=== PATIENT | male | born 1960 | race Caucasian/White ===

== ENCOUNTER 2017-08-24 01:15 | Emergency (ER) | payer SELFPAY ==
[2017-08-24] VITALS (7 sets, daily range): BP systolic 118–198; BP diastolic 81–109; PULSE 76–81; RESP 18–24; TEMP 97.8; O2SAT 96–100
[~2017-08-24] VITALS: Ht 180.3 cm; Wt 81.8 kg
[~2017-08-24 01:15] MED LIST: ALBU6.7H INH; ASPI81 PO; GUAI100S6 PO; LISI-363 PO; METO25 PO; PRED20 PO; ZITH250T PO
[2017-08-24] MEDS ORDERED: ASPI1TAB57 PO (01:38)
--- NOTE | 2017-08-24 01:55 | PD ---
HPI Chief Complaint: Respiratory Symptoms Time Seen by Provider: 01:51 Travel History International Travel<30 days: No Contact w/Intl Traveler<30days: No Traveled to known affect area: No History of Present Illness HPI 57-year-old male presents to the emergency department for complaint of shortness of breath and wheezing. Patient states she has had wheezing intermittently for a while but specifically worsened since 10 PM this evening. No chest pain. Patient denies productive cough. No hemoptysis. No abdominal pain. Patient does smoke marijuana but denies tobacco use. Patient is been treated in the past for bronchitis. Patient concerned about exposure to mold in his home. Patient states he feels improved just since he left his house and arrived here. No fever no chills no sore throat no earache no abdominal pain. No nausea no vomiting no sweats. No lower extremity pain or swelling. No orthopnea or PND. PFSH Past Medical History Narrative Medical Hypertension possible irregular heartbeat marijuana use nursing notes reviewed Atrial Fibrillation: Yes (thinks maybe afib) Cardiovascular Problems: Yes (unsure; some type of misc heart prob ) Hypertension: Yes Tetanus Vaccination: > 5 Years Influenza Vaccination: No Past Surgical History Abdominal Surgery: Yes (HERNIA) Social History Alcohol Use: No Tobacco Use: No Substance Use: Yes (marijuana) Allergies-Medications (Allergen,Severity, Reaction): Coded Allergies: No Known Allergies (Verified , 07/19/12) Reported Meds & Prescriptions Reported Meds & Active Scripts Active Reported Aspirin 81 (Aspirin) 81 Mg Tabdr 81 Mg PO DAILY Review of Systems Except as stated in HPI: all other systems reviewed are Neg General / Constitutional: No: Fever HENT: Positive: Congestion, No: Sore Throat Cardiovascular: No: Chest Pain or Discomfort Respiratory: Positive: Cough, Shortness of Breath, Wheezing Gastrointestinal: No: Vomiting, Abdominal Pain Genitourinary: No: Flank Pain Musculoskeletal: No: Myalgias, Arthralgias Skin: No Rash Neurologic: No: Weakness Psychiatric: No: Anxiety Hematologic/Lymphatic: No: Lymph Node Enlargement Physical Exam Narrative GENERAL: Well-developed well-nourished male in no acute distress no respiratory distress SKIN: Warm and dry. HEAD: Normocephalic. EYES: No scleral icterus. No injection or drainage. NECK: Supple, trachea midline. No JVD or lymphadenopathy. CARDIOVASCULAR: Regular rate and rhythm without murmurs, gallops, or rubs. RESPIRATORY: Breath sounds equal with wheezing bilaterally. No accessory muscle use. GASTROINTESTINAL: Abdomen soft, non-tender, nondistended. MUSCULOSKELETAL: No cyanosis, or edema. BACK: Nontender without obvious deformity. No CVA tenderness. Data Data Last Documented VS Vital Signs Date Time Temp Pulse Resp B/P (MAP) Pulse Ox O2 Delivery O2 Flow Rate FiO2 08/24/17 02:28 79 20 198/84 (122) 100 Room Air 08/24/17 02:27 2.00 08/24/17 02:05 21 08/24/17 01:17 97.8 Orders Orders Complete Blood Count With Diff (08/24/17 01:51) Basic Metabolic Panel (Bmp) (08/24/17 01:51) B-Type Natriuretic Peptide (08/24/17 01:51) Magnesium (Mg) (08/24/17 01:51) Ckmb (Isoenzyme) Profile (08/24/17 01:51) Troponin I (08/24/17 01:51) Influenzae A/B Antigen (08/24/17 01:51) Iv Access Insert/Monitor (08/24/17 01:51) Electrocardiogram (08/24/17 01:51) Ecg Monitoring (08/24/17 01:51) Oximetry (08/24/17 01:51) Oxygen Administration (08/24/17 01:51) Chest, Single Ap (08/24/17 01:51) Sodium Chloride 0.9% Flush (Ns Flush) (08/24/17 02:00) Methylprednisolone So Succ Inj (Solumedr (08/24/17 02:00) Albuterol-Ipratropium Neb (Duoneb Neb) (08/24/17 02:00) Clonidine (Catapres) (08/24/17 03:15) Labs Laboratory Tests Test 08/24/17 01:50 White Blood Count 7.0 TH/MM3 Red Blood Count 5.02 MIL/MM3 Hemoglobin 16.0 GM/DL Hematocrit 45.8 % Mean Corpuscular Volume 91.2 FL Mean Corpuscular Hemoglobin 31.9 PG Mean Corpuscular Hemoglobin Concent 35.0 % Red Cell Distribution Width 13.1 % Platelet Count 239 TH/MM3 Mean Platelet Volume 8.4 FL Neutrophils (%) (Auto) 57.1 % Lymphocytes (%) (Auto) 19.8 % Monocytes (%) (Auto) 15.6 % Eosinophils (%) (Auto) 6.4 % Basophils (%) (Auto) 1.1 % Neutrophils # (Auto) 4.0 TH/MM3 Lymphocytes # (Auto) 1.4 TH/MM3 Monocytes # (Auto) 1.1 TH/MM3 Eosinophils # (Auto) 0.4 TH/MM3 Basophils # (Auto) 0.1 TH/MM3 CBC Comment DIFF FINAL Differential Comment Blood Urea Nitrogen 20 MG/DL Creatinine 1.04 MG/DL Random Glucose 100 MG/DL Calcium Level 8.9 MG/DL Magnesium Level 2.4 MG/DL Sodium Level 142 MEQ/L Potassium Level 3.4 MEQ/L Chloride Level 109 MEQ/L Carbon Dioxide Level 25.7 MEQ/L Anion Gap 7 MEQ/L Estimat Glomerular Filtration Rate 73 ML/MIN Total Creatine Kinase 94 U/L Troponin I LESS THAN 0.02 NG/ML B-Type Natriuretic Peptide 54 PG/ML MDM Medical Decision Making Medical Screen Exam Complete: Yes Emergency Medical Condition: Yes Medical Record Reviewed: Yes Interpretation(s) EKG normal sinus rhythm rate [address] elevation injury pattern or ectopy noted Influenza antigen: Negative Last Impressions Chest X-Ray 08/24/17 0151 Signed Impressions: Service Date/Time: Thursday, August 24, 2017 02:03 - CONCLUSION: No acute disease. Julio Montoya MD CBC & BMP Diagram 08/24/17 01:50 Vital Signs Date Time Temp Pulse Resp B/P (MAP) Pulse Ox O2 Delivery O2 Flow Rate FiO2 08/24/17 02:28 79 20 198/84 (122) 100 Room Air 08/24/17 02:27 98 Nasal Cannula 2.00 08/24/17 01:48 76 24 98 Room Air 08/24/17 01:17 97.8 81 18 118/81 (93) 96 Room Air CK 94, not elevated troponin I less than 0.02, not elevated BNP not elevated Differential Diagnosis Bronchitis COPD pneumonia CHF ACS viral syndrome influenza Narrative Course Patient was on potline monitor IV access obtained specimens collected and sent for resulting imaging study and EKG ordered patient given Solu-Medrol and DuoNeb [facility] Diagnosis Primary Impression: Bronchitis Additional Impression: HTN (hypertension) Referrals: Primary Care Physician call for appointment Patient Instructions: General Instructions Additional Instructions: Increase fluid hydration Take medications as prescribed Follow-up with primary care provider Return to the emergency department for a concerns or change in condition Monitor temperature every 4 hours with thermometer take as needed acetaminophen/ Tylenol every 4 hours for fever 100.4F or greater Med/Other Pt SpecificInfo: Prescription(s) given Scripts Albuterol 18 GM Inh (Ventolin Hfa 18 GM Inh) 90 Mcg/Act Aer 2 PUFF INH Q4-6H Y for SHORTNESS OF BREATH, #1 INHALER 1 Refill Prov: Carol Langtson MD 08/24/17 Methylprednisolone Dosepak (Medrol Dosepak) 4 Mg Dspk 4 MG PO DIRECTED, #1 DSPK 0 Refills Per Pharmacist direction Prov: Carol Langston MD 08/24/17 Enalapril (Enalapril) 5 Mg Tab 5 MG PO DAILY, #30 TAB 0 Refills Prov: Carol Langston MD 08/24/17 Clonidine (Clonidine) 0.1 Mg Tab 0.1 MG PO Q12HR Y for SBP>180, DBP>95, #6 TAB 0 Refills Prov: Carol Langston MD 08/24/17 Disposition: 01 DISCHARGE HOME Condition: Stable Carol Langston MD Aug 24, 2017 01:55
[2017-08-24] MEDS: RESP: ALBUTEROL 2.5 MG/IPRATROPIUM 0.5 MG NEB (SCH) INH ×2 (01:58→01:59)
[2017-08-24] MEDS ORDERED: methylPREDNISolone SOD SUCC 125 MG/2 ML VIAL IV PUSH ONE (02:00)
[2017-08-24] MEDS ORDERED: SODIUM CHLORIDE 0.9% FLUSH 10 ML FLUSH IVF PRN (02:00)
--- NOTE | 2017-08-24 02:11 | RADRPT ---
EXAM DATE/TIME: 08/24/2017 02:03 [facility] COMPARISON: No previous studies available for comparison. INDICATIONS : Patient complains of cough and shortness of breath. MEDICAL HISTORY : None. SURGICAL HISTORY : None. ENCOUNTER: Initial ACUITY: 2 days PAIN SCORE: 0/10 LOCATION: chest FINDINGS: A single view of the chest demonstrates the lungs to be symmetrically aerated without evidence of mas s, infiltrate or effusion. The cardiomediastinal contours are unremarkable. Osseous structures are intact. CONCLUSION: No acute disease. Julio Montoya MD on August 24, 2017 at 2:08 Board Certified Radiologist. This report was verified electronically.
[2017-08-24 02:15] LABS: BASOPHIL # 0.1 TH/MM3 (0-0.2); BASOPHIL % 1.1 % (0.0-2.0); EOSINOPHIL # 0.4 TH/MM3 (0-0.4); EOSINOPHIL % 6.4 % (0.0-4.0); HEMATOCRIT 45.8 % (39.0-51.0); LYMPH % 19.8 % (9.0-44.0); LYMPHOCYTE # 1.4 TH/MM3 (1.0-4.8); MEAN CELL VOLUME 91.2 FL (80.0-100.0); MEAN CORPUSCULAR HEMOGLOBIN 31.9 PG (27.0-34.0); MEAN PLATELET VOLUME 8.4 FL (7.0-11.0); MONO % 15.6 % (0.0-8.0); MONOCYTE # 1.1 TH/MM3 (0-0.9); NEUT % 57.1 % (16.0-70.0); PLATELET COUNT 239 TH/MM3 (150-450); RED BLOOD COUNT 5.02 MIL/MM3 (4.50-5.90); RED CELL DISTRIBUTION WIDTH 13.1 % (11.6-17.2)
[2017-08-24 02:40] LABS: BICARBONATE 25.7 MEQ/L (21.0-32.0); BLOOD UREA NITROGEN 20 MG/DL (7-18); CALCIUM 8.9 MG/DL (8.5-10.1); CHLORIDE 109 MEQ/L (98-107); CREATININE 1.04 MG/DL (0.60-1.30); GLOMERULAR FILTRATION RATE 73 ML/MIN (>89); GLUCOSE,RANDOM 100 MG/DL (74-106); MAGNESIUM 2.4 MG/DL (1.5-2.5); SODIUM (NA) 142 MEQ/L (136-145)
[2017-08-24 02:44] LABS: TROPONIN I LESS THAN 0.02 NG/ML (0.02-0.05)
[2017-08-24] MEDS ORDERED: ENAL5TAB PO (03:11)
[2017-08-24] MEDS ORDERED: MEDR4PAK PO (03:11)
[2017-08-24] MEDS ORDERED: VENTAER INH (03:11)
[2017-08-24] MEDS ORDERED: CLON0.1T PO (03:11)
[2017-08-24] MEDS ORDERED: cloNIDine HCL 0.1 MG TAB PO ONE (03:15)
--- NOTE | 2017-08-24 22:42 | EKG ---
Date Performed: 08/24/2017 Time Performed: 02:34:21 PTAGE: 57 years EKG: Sinus rhythm BORDERLINE LEFT AXIS DEVIATION BORDERLINE ECG PREVIOUS TRACING : 07/19/2012 08.56 Compared to the previous tracing, rate has decreased DOCTOR: Varghese Rosales Interpretating Date/Time 08/24/2017 22:42:20
== END 2017-08-24 04:12 | disposition home or self-care (01) ==
LOC: NEPC 01:15
DX: J40 Bronchitis, not specified as acute or chronic (principal); I10 Essential (primary) hypertension; F12.90 Cannabis use, unspecified, uncomplicated; Z79.82 Long term (current) use of aspirin
CPT/HCPCS: 71010; 80048; 82550; 83735; 83880; 84484; 85025; 87804; 93005; 94640; 94664; 96361; 96374; 99285; J2930

== ENCOUNTER 2017-09-02 00:26 | Emergency (ER) | payer SELFPAY ==
[~2017-09-02] VITALS: Ht 180.3 cm; Wt 81.8 kg
[~2017-09-02 00:26] MED LIST changes: -ALBU6.7H INH; +ASPI1TAB57 PO; -ASPI81 PO; +CLON0.1T PO; +ENAL5TAB PO; -GUAI100S6 PO; -LISI-363 PO; +MEDR4PAK PO; -METO25 PO; -PRED20 PO; +VENTAER INH; -ZITH250T PO
[2017-09-02 00:27] VITALS: BP 210/117; PULSE 89; RESP 20; TEMP 98; O2SAT 97
[2017-09-02 00:42] VITALS: BP 174/88; PULSE 74; RESP 17; O2SAT 95
[2017-09-02 00:45] VITALS: PULSE 88; RESP 16; O2SAT 97
--- NOTE | 2017-09-02 00:51 | PD ---
HPI Chief Complaint: Respiratory Distress Time Seen by Provider: 00:45 Travel History International Travel<30 days: No Contact w/Intl Traveler<30days: No Traveled to known affect area: No History of Present Illness HPI The patient is 57 year old male who presents to the [facility] emergency department with a history of shortness of breath that recurred prior to arrival. The patient reports that he was seen in the emergency department on August 24 related to shortness of breath and wheezing. The patient was discharged home with a prescription for a rescue inhaler and a Medrol Dosepak, however the patient reports that he did not get the medications filled as he was not able to afford it. The patient has [facility] insurance. He is unsure who his assigned primary care physician is. He has not been to see a primary care physician in an extended period of time. He reports that 5 years ago he was on medication for high blood pressure, however he has not been on any since then. The patient was hypertensive when he arrived in the emergency department during his last evaluation and was given a prescription for clonidine and enalapril. The patient reports that he does not like the way the medication makes him feel. He reports that he believes his blood pressure continues to be elevated in spite of taking the medicine. The patient denies having a productive cough. He reports that he has postnasal drip that is chronic related to chronic sinus issues. The patient denies having any known recent fevers, neck pain, chest pain,abdominal pain, vomiting, diarrhea, urinary symptoms, or neurologic symptoms. PFSH Past Medical History Narrative Medical The patient's past medical history is significant for hypertension- cannot of blood pressure medication , marijuana use daily, irregular heart beat possibly atrial fibrillation, he is unsure of the name of the irregular rhythm. Atrial Fibrillation: Yes (thinks maybe afib) Cardiovascular Problems: Yes (unsure; some type of misc heart prob ) Hypertension: Yes Tetanus Vaccination: Never Vaccinated Influenza Vaccination: No Past Surgical History Narrative Surgical The patient's past surgical history is significant for hernia repair bilateral. Abdominal Surgery: Yes (HERNIA) Social History Alcohol Use: No Tobacco Use: No Substance Use: Yes (daily marijuana use) Allergies-Medications (Allergen,Severity, Reaction): Coded Allergies: No Known Allergies (Verified Adverse Reaction, Unknown, 09/02/17) Reported Meds & Prescriptions Reported Meds & Active Scripts Active Ventolin Hfa 18 GM Inh (Albuterol Sulfate) 90 Mcg/Act Aer 2 Puff INH Q4-6H PRN Medrol Dosepak (Methylprednisolone) 4 Mg Dspk 4 Mg PO DIRECTED Per Pharmacist direction Enalapril (Enalapril Maleate) 5 Mg Tab 5 Mg PO DAILY Clonidine (Clonidine HCl) 0.1 Mg Tab 0.1 Mg PO Q12HR PRN Reported Aspirin 81 (Aspirin) 81 Mg Tabdr 81 Mg PO DAILY Review of Systems Except as stated in HPI: all other systems reviewed are Neg General / Constitutional: No: Fever Eyes: No: Visual changes HENT: Positive: Congestion, No: Headaches Cardiovascular: Positive: Dyspnea on exertion, No: Chest Pain or Discomfort Respiratory: Positive: Cough, Shortness of Breath Gastrointestinal: No: Abdominal Pain Genitourinary: No: Dysuria Musculoskeletal: No: Pain Skin: No Rash Neurologic: No: Weakness Psychiatric: No: Depression Endocrine: No: Polydipsia Hematologic/Lymphatic: No: Easy Bruising Physical Exam Narrative General: The patient is a well-developed well-nourished male in no acute distress. Head and Neck exam: Head is normocephalic atraumatic. Eyes: EOMI, pupils are equal round and reactive to light. Nose: Midline septum with pink mucous membranes Mouth: Dentition unremarkable. Moist mucus membranes. Posterior oropharynx is not erythematous. No tonsillar hypertrophy. Uvula midline. Airway patent. Neck: No palpable lymphadenopathy. No nuchal rigidity. No thyromegaly. Cardiovascular: Regular rate and rhythm without murmurs, gallops, or rubs. Lungs: Soft expiratory wheezes audible throughout bilateral lung salazar. No rhonchi, no crackles. Abdomen: Soft, without tenderness to palpation in all 4 quadrants of the abdomen. No guarding, rebound, or rigidity. Normal bowel sounds are audible. No tenderness on palpation of McBurney's point. Extremities: No clubbing, cyanosis, or edema. 2+ pulses in all 4 extremities. No calf tenderness on palpation. Negative Homans sign. No palpable cords. Back: No spinous process tenderness to palpation. No costovertebral angle tenderness to palpation. Neurologic Exam: Grossly nonfocal. Skin Exam: No rash noted. Intact skin that is warm and dry. Data Data Last Documented VS Vital Signs Date Time Temp Pulse Resp B/P (MAP) Pulse Ox O2 Delivery O2 Flow Rate FiO2 09/02/17 00:45 88 16 97 Nasal Cannula 2.00 09/02/17 00:27 98.0 Orders Orders Complete Blood Count With Diff (09/02/17 01:09) Basic Metabolic Panel (Bmp) (09/02/17 01:09) Iv Access Insert/Monitor (09/02/17 01:09) Ecg Monitoring (09/02/17 01:09) Oximetry (09/02/17 01:09) Oxygen Administration (09/02/17 01:09) Sodium Chloride 0.9% Flush (Ns Flush) (09/02/17 01:15) Methylprednisolone So Succ Inj (Solumedr (09/02/17 01:15) Albuterol-Ipratropium Neb (Duoneb Neb) (09/02/17 01:15) Albuterol Hfa Inh (Proair Hfa Inh) (09/02/17 01:30) Resp Request For Service (09/02/17 ) Chest, Single Ap (09/02/17 02:04) Clonidine (Catapres) (09/02/17 02:30) Labs Laboratory Tests Test 09/02/17 01:20 White Blood Count 9.2 TH/MM3 Red Blood Count 5.04 MIL/MM3 Hemoglobin 16.3 GM/DL Hematocrit 46.0 % Mean Corpuscular Volume 91.3 FL Mean Corpuscular Hemoglobin 32.2 PG Mean Corpuscular Hemoglobin Concent 35.3 % Red Cell Distribution Width 12.8 % Platelet Count 286 TH/MM3 Mean Platelet Volume 8.7 FL Neutrophils (%) (Auto) 63.5 % Lymphocytes (%) (Auto) 19.4 % Monocytes (%) (Auto) 11.2 % Eosinophils (%) (Auto) 4.9 % Basophils (%) (Auto) 1.0 % Neutrophils # (Auto) 5.9 TH/MM3 Lymphocytes # (Auto) 1.8 TH/MM3 Monocytes # (Auto) 1.0 TH/MM3 Eosinophils # (Auto) 0.5 TH/MM3 Basophils # (Auto) 0.1 TH/MM3 CBC Comment DIFF FINAL Differential Comment Blood Urea Nitrogen 18 MG/DL Creatinine 1.23 MG/DL Random Glucose 122 MG/DL Calcium Level 9.0 MG/DL Sodium Level 141 MEQ/L Potassium Level 3.5 MEQ/L Chloride Level 107 MEQ/L Carbon Dioxide Level 27.5 MEQ/L Anion Gap 7 MEQ/L Estimat Glomerular Filtration Rate 60 ML/MIN MDM Medical Decision Making Medical Screen Exam Complete: Yes Emergency Medical Condition: Yes Medical Record Reviewed: Yes Differential Diagnosis COPD exacerbation, versus reactive airway related to allergy exacerbation, versus congestive heart failure Narrative Course During the course of the patients emergency department visit, the patients history, examination, and differential diagnosis were reviewed with the patient. The patient was placed on a groundwater monitoring technician with oximetry and frequent blood pressure monitoring. The patient had IV access obtained and blood work sent for analysis. The patient's electronic medical record was reviewed. The patient was seen on August 24 regarding similar symptoms and had a full workup including cardiac enzymes, ECG, BNP that were all within normal limits. A chest x-ray at that time showed no acute abnormality. The patient was initially provided Solu-Medrol 125 mg IV, DuoNeb 2. The patient was given clonidine 0.1 by mouth 1. The patients laboratory studies were reviewed and remarkable for white count of 9.2, hemoglobin 16.3, platelets 286 with 11.2 monocytes. Basic metabolic profile is remarkable for a GFR of 60, glucose 122 Radiology studies were reviewed and remarkable for a chest x-ray that shows no evidence of congestive heart failure, no acute cardiopulmonary disease. The patient was given instruction from respiratory therapy regarding use of an inhaler. He inhaler was administered to him. The patient was instructed that the Medrol Dosepak taper that he was previously prescribed is on the $4 list at [facility]. He will follow up to obtain this prescription as well as follow-up with a primary care physician as soon as possible. He was instructed regarding the importance of continuing on his new blood pressure medication. The patient is resting comfortably and feels better, is alert and in no distress. The patients results and examination findings were discussed with the patient. The repeat examination is unremarkable and benign. The history, exam, diagnostic testing, and current condition do not suggest any significant pathology to warrant further testing, continued ED treatment, admission, or surgical evaluation at this point. The vital signs have been stable. The patient does not have uncontrollable pain, intractable vomiting, or other significant symptoms. The patient's condition is stable and appropriate for discharge. The patient will pursue further outpatient evaluation with a primary care physician or other designated or consulting physician as indicated in the discharge instructions. The patient expressed understanding and was agreeable with this plan. Diagnosis Primary Impression: Wheezing Additional Impressions: Marijuana use Uncontrolled hypertension Referrals: Primary Care Physician 2 days Patient Instructions: Cannabis Abuse (ED), General Instructions, Hypertension ( ED), Wheezing (ED) Med/Other Pt SpecificInfo: No Change to Meds Disposition: 01 DISCHARGE HOME Condition: Stable Genna Sylvester MD Sep 02, 2017 00:51
[2017-09-02] MEDS ORDERED: SODIUM CHLORIDE 0.9% FLUSH 10 ML FLUSH IVF PRN (01:15)
[2017-09-02] MEDS ORDERED: methylPREDNISolone SOD SUCC 125 MG/2 ML VIAL IV PUSH ONE (01:15)
[2017-09-02] MEDS: RESP: ALBUTEROL 2.5 MG/IPRATROPIUM 0.5 MG NEB (SCH) INH (01:20)
[2017-09-02] MEDS ORDERED: ALBUTEROL SULFATE 90 MCG/ACT HFA 8 GM INHALER INH ONE (01:30)
[2017-09-02 01:40] LABS: AUTOMATED NEUTROPHIL # 5.9 TH/MM3 (1.8-7.7); BASOPHIL # 0.1 TH/MM3 (0-0.2); EOSINOPHIL # 0.5 TH/MM3 (0-0.4); EOSINOPHIL % 4.9 % (0.0-4.0); HEMOGLOBIN 16.3 GM/DL (13.0-17.0); LYMPH % 19.4 % (9.0-44.0); LYMPHOCYTE # 1.8 TH/MM3 (1.0-4.8); MEAN CELL VOLUME 91.3 FL (80.0-100.0); MEAN CORPUSCULAR HEMOGLOBIN 32.2 PG (27.0-34.0); MEAN CORPUSCULAR HGB CONC 35.3 % (32.0-36.0); MEAN PLATELET VOLUME 8.7 FL (7.0-11.0); MONO % 11.2 % (0.0-8.0); NEUT % 63.5 % (16.0-70.0); PLATELET COUNT 286 TH/MM3 (150-450); RED BLOOD COUNT 5.04 MIL/MM3 (4.50-5.90); RED CELL DISTRIBUTION WIDTH 12.8 % (11.6-17.2); WHITE BLOOD COUNT 9.2 TH/MM3 (4.0-11.0)
[2017-09-02 01:56] LABS: BICARBONATE 27.5 MEQ/L (21.0-32.0); CREATININE 1.23 MG/DL (0.60-1.30)
[2017-09-02] MEDS ORDERED: cloNIDine HCL 0.1 MG TAB PO ONE (02:30)
--- NOTE | 2017-09-02 02:32 | RADRPT ---
EXAM DATE/TIME: 09/02/2017 02:10 [facility] COMPARISON: CHEST SINGLE AP, August 24, 2017, 2:03. INDICATIONS : Short of breath. MEDICAL HISTORY : Hypertension. Chronic obstructive pulmonary disease. A-fib. SURGICAL HISTORY : None. ENCOUNTER: [facility] ACUITY: 1 week PAIN SCORE: 0/10 LOCATION: Bilateral chest FINDINGS: A single view of the chest demonstrates the lungs to be symmetrically aerated without evidence of mas s, infiltrate or effusion. The cardiomediastinal contours are unremarkable. Osseous structures are intact. CONCLUSION: No evidence of acute cardiopulmonary disease. Julio Jensen MD on September 02, 2017 at 2:30 Board Certified Radiologist. This report was verified electronically.
[2017-09-02 03:34] VITALS: BP 138/87; PULSE 71; RESP 16; O2SAT 97
== END 2017-09-02 03:57 | disposition home or self-care (01) ==
LOC: NEPE 00:26
DX: J44.9 Chronic obstructive pulmonary disease, unspecified (principal); F12.90 Cannabis use, unspecified, uncomplicated; I10 Essential (primary) hypertension; I48.91 Unspecified atrial fibrillation
CPT/HCPCS: 71010; 80048; 85025; 94640; 94664; 96374; 99284; J2930